=== PATIENT | female | born 1990 | race Caucasian/White ===

== ENCOUNTER 2018-10-01 20:10 | Emergency (ER) | payer OTHER, BC ==
[~2018-10-01] VITALS: Ht 165.1 cm; Wt 81.8 kg
[2018-10-01 20:33] VITALS: BP 112/66; TEMP 98.6
[2018-10-01 21:44] LABS: BASO % 0.3 % (0.0-2.0); EOS % 0.5 % (0-4.0); GRAN # 4.9 (1.4-6.5); GRAN % 66.1 % (42.2-75.2); HEMATOCRIT 40.4 % (37.0-47.0); HEMOGLOBIN 13.1 g/dl (12.5-16.0); LYMPH % 26.7 % (20.0-51.0); MEAN CELL VOLUME 87 fl (80.0-100.0); MEAN CORPUSCULAR HEMOGLOBIN 28 pg (27.0-31.0); MEAN CORPUSCULAR HGB CONC 32 g/dl (33.0-37.0); MEAN PLATELET VOLUME 10.3 fl (7.4-10.4); MONO # 0.5 (0.1-0.6); MONO % 6.1 % (1.7-9.3); PLATELET COUNT 281 K/mm3 (130-400); RED BLOOD COUNT 4.67 M/mm3 (4.10-5.30)
[2018-10-01 21:58] LABS: ALANINE AMINOTRANSFERASE 9 U/L (9-52); ALBUMIN 4.4 gm/dL (3.5-5.0); ALKALINE PHOSPHATASE 77 U/L (50-136); ANION GAP 10 mmol/L (7-16); AST,SGOT 25 U/L (15-37); BILIRUBIN,TOTAL 1.1 mg/dL (0.0-1.0); BLOOD UREA NITROGEN 13 mg/dL (7-17); C-REACTIVE PROTEIN < 0.5 mg/dL (0.0-0.9); CALCIUM 9.4 mg/dL (8.4-10.2); CARBON DIOXIDE 25 mmol/L (22-30); CHLORIDE 105 mmol/L (98-107); CREATININE, serum 0.63 (0.52-1.25); GLUCOSE 88 mg/dL (74-106); POTASSIUM 4.4 mmol/L (3.4-5.0); SODIUM 140 mmol/L (137-145); TOTAL PROTEIN 7.3 gm/dL (6.4-8.2)
[2018-10-01 23:26] VITALS: PULSE 72
== END 2018-10-01 23:30 | disposition home or self-care (01) ==
LOC: COL.ER 20:10
PROVIDERS: Physician Assistant
DX: G43.909 Migraine, unspecified, not intractable, without status migrainosus (principal); Z90.49 Acquired absence of other specified parts of digestive tract
CPT/HCPCS: J1200; J2550; J7030

== ENCOUNTER 2019-01-22 01:48 | Emergency (ER) | payer OTHER ==
[~2019-01-22] VITALS: Ht 165.1 cm; Wt 77.3 kg
[2019-01-22 01:52] VITALS: BP 112/55
[2019-01-22] MEDS ORDERED: TESSALON P100 MG/CAP PO (02:11)
[2019-01-22] MEDS ORDERED: TAMIFLU 75MG75 MG PO (02:55)
[2019-01-22 03:05] VITALS: PULSE 86; TEMP 98.2
== END 2019-01-22 03:15 | disposition home or self-care (01) ==
LOC: COL.ER 01:48
DX: J11.1 Influenza due to unidentified influenza virus with other respiratory manifestations (principal)